=== PATIENT | female | born 2000 | race Caucasian/White ===

== ENCOUNTER 2020-06-07 19:25 | Inpatient (IN) ==
--- NOTE | 2020-06-07 20:00 | Emergency Department Note ---
Impression & Plan Suicidal ideation, UTI (urinary tract infection) ED Provider Note NAME: MARIANN LORA AGE: 19 SEX: F : 2000 ARRIVES VIA: Walk-In INFORMANT: [Patient] ED PROVIDER(S): [Suman Avery MD] CHIEF COMPLAINT: Mental health evaluation HISTORY OF PRESENT ILLNESS: The patient is a 19-year-old female who takes Zoloft. The patient states that she had some relationship issues several days ago and for the last 3 days, she has had some suicidal thoughts. She has thought about taking pills, she has thought about strangling herself with a tie, she has thought about drinking bleach. She contacted caps today, a petition was filled out and she was sent to the ER. The patient is voluntary and is asking for inpatient care for help. There has been no cough or cold or congestion. She has had no fever or chills. She has been in baseline health otherwise. She has no history of prior suicidal ideation. REVIEW OF SYSTEMS: See HPI for pertinent positives and negatives. A total of ten systems were reviewed and were otherwise negative. PMHx/PSHx: See Below SOCIAL HISTORY: See Below. PHYSICAL EXAM: GENERAL: Patient is in no acute distress. HEENT: No acute trauma, normocephalic atraumatic, mucous membranes moist, no nasal congestion, no scleral icterus. NECK: No stridor, no adenopathy, no meningismus, trachea is midline. LUNGS: Clear to auscultation bilaterally, no wheeze, no rhonchi, breath sounds equal. HEART: Mildly tachycardic, regular rhythm, no murmurs. ABDOMEN: Soft, nontender, bowel sounds positive, no hernias, no peritonitis. EXTREMITIES: No cyanosis or edema, full range of motion of all the joints without pain or difficulty, no signs for acute trauma. NEUROLOGIC: Oriented x 3, no acute motor or sensory deficits, no focal weakness. SKIN: No rash, no jaundice, no diaphoresis. Psych: Patient is cooperative and voluntary. She admits to suicidal ideation with several plans. DIFFERENTIAL DIAGNOSIS: Mood disorder, infection, hypoglycemia, electrolyte abnormalities, cardiac sources, suicidal ideation, depression, intracerebral event, toxicologic etiology, trauma, neurologic event, as well as other pathologies. EMERGENCY DEPARTMENT COURSE/PROCEDURES: MEDICAL DECISION MAKING: There is no leukocytosis or concerning anemia. There is a normal platelet co unt. No significant electrolyte abnormality or kidney failure. No concerning liver enzyme elevation. The patient appeared to be in a euthyroid state. testing returned negative. Urinalysis does suggest infection. Aspirin, Tylenol and alcohol levels were undetectable. Urine tox was negative. Covid testing returned negative. The patient presents with suicidal ideation. She had thought things out enough to have 3 potential suicidal plans. She was voluntary. Patient was given oral Keflex for her UTI. She has been cooperative while here in the ED. The patient was seen by psychiatry case management. She is being hospitalized here, on 3 S. She is being admitted voluntarily. The UTI can be treated with Keflex for now, we will wait for the urine culture results to see if any antibiotic adjustment is required. Past Med/Surg History Medical History Depression Social History Smoking Status: Current some day smoker Tobacco Type: E-cigarettes / Vaping Preferred Language: Palestinian Feels Safe at Home: Yes Allergies Allergies Allergy/AdvReac Type Severity Reaction Status Date / Time No Known Allergies Allergy Unverified 06/07/20 23:32 Home Meds Home Medications Medication Instructions Recorded Confirmed hydralazine 25 mg PO PRN 06/07/20 norgestimate-ethinyl estradiol 1 tab PO DAILY 06/07/20 06/07/20 [Gracie] sertraline [Zoloft] 100 mg PO DAILY 06/07/20 06/07/20 Results & Data (ED) Vital Signs Vital Signs - 24 hr 06/07/20 19:32 06/07/20 21:26 Temperature 36.9 C Temperature Source Oral Pulse Rate 113 H Pulse Rate [Left Radial] 80 Pulse Rhythm Regular Pulse Strength Normal Respiratory Rate 16 16 Respiratory Effort / Characteristics Non-Labored Respiratory Depth Normal Normal Respiratory Pattern Regular Blood Pressure 135/81 Blood Pressure [Left Arm] 115/70 Blood Pressure Mean 99 Blood Pressure Mean [Left Arm] 85 Blood Pressure Position Sitting Pulse Oximetry 96 99 Oxygen Delivery Method Room Air Room Air Sepsis Recent Fever Within 48 Hours No Sepsis New/Unexplained Change in Mental Status N/A Sepsis Action Taken by Nursing No Action Required Home Medications Current Medication List: was personally reviewed by me Laboratory Data Attestation: I reviewed the patient's lab results. Result diagrams: 06/07/20 20:09 06/07/20 20:09 Lab Results 06/07/20 06/07/20 06/07/20 Range/Units 20:09 20:09 20:09 WBC 9.26 (4.8-10.8) K/uL RBC 4.75 (4.2-5.4) M/uL Hgb 13.3 (12.0-16.0) g/dL Hct 39.4 (37-47) % MCV 82.9 (80-100) fL MCH 28.0 (25-34) pg MCHC 33.8 (32-36) g/dL RDW Std Deviation 39.8 (36.4-46.3) fL RDW Coeff of Nani 13.2 (11.5-14.5) % Plt Count 271 (130-400) K/uL MPV 9.5 (7.4-10.4) fL Immature Gran % (Auto) 0.2 % Neut % (Auto) 74.1 % Lymph % (Auto) 15.4 % Foard % (Auto) 9.8 % Eos % (Auto) 0.4 % Baso % (Auto) 0.1 % Neut # (Auto) 6.85 H (1.4-6.5) K/uL Lymph # (Auto) 1.43 (1.2-3.4) K/uL Foard # (Auto) 0.91 H (0.11-0.59) K/uL Eos # (Auto) 0.04 (0-0.5) K/uL Baso # (Auto) 0.01 (0-0.2) K/uL Immature Gran # (Auto) 0.02 (0.00-0.02) K/uL Sodium 139 (136-145) mmol/L Potassium 3.7 (3.5-5.1) mmol/L Chloride 106 (98-107) mmol/L Carbon Dioxide 28 (21-32) mmol/L Anion Gap 5.0 (3-11) BUN 11 (7-18) mg/dl Creatinine 0.77 (0.6-1.2) mg/dl Est Cr Clr Drug Dosing 108.4 ml/min Est GFR ( Amer) 128.8 Est GFR (Non-Af Amer) 111.1 BUN/Creatinine Ratio 14.2 (10-20) Glucose 107 H (70-99) mg/dl Calcium 8.9 (8.5-10.1) mg/dl Total Bilirubin 0.4 (0.2-1) mg/dl AST 9 L (15-37) U/L ALT 15 (12-78) U/L Alkaline Phosphatase 68 (45-117) U/L Total Protein 8.0 (6.4-8.2) gm/dl Albumin 3.9 (3.4-5.0) gm/dl Globulin 4.1 H (2.5-4.0) gm/dl Albumin/Globulin Ratio 1.0 (0.9-2) TSH 2.010 (0.300-4.500) uIu/ml HCG, Qual (Negative) Urine Color Urine Appearance (Clear) Urine pH (4.5-7.5) Ur Specific [place] (1.000-1.030) Urine Protein (Negative) Urine Glucose (UA) (Negative) Urine Ketones (Negative) Urine Blood (Negative) Urine Nitrite (Negative) Urine Bilirubin (Negative) Urine Urobilinogen (Negative) Ur Leukocyte Esterase (Negative) Urine WBC (Auto) (0-5) /hpf Urine RBC (Auto) (0-4) /hpf U Hyaline Cast (Auto) U Epithel Cells (Auto) (0-5) /lpf Urine Bacteria (Auto) (Negative) Salicylates < 1.7 L (2.8-20) mg/dl Urine Opiates Screen (Neg) Ur Methadone, Qual (Neg) Acetaminophen < 2 L (10-30) ug/ml Urine Barbiturates (Neg) Ur Phencyclidine (PCP) (Neg) U Amphetamin/Meth Scrn (Neg) MDMA (Ecstasy) Screen (Neg) U Benzodiazepines Scrn (Neg) Ur Cocaine Metabolite (Neg) U Marijuana (THC) Screen (Neg) Ethyl Alcohol mg/dL (0-3) mg/dl COVID-19 Eval Order SARS-CoV-2, RNA, NAAT (NEGATIVE) 06/07/20 06/07/20 06/07/20 Range/Units 20:09 20:09 23:06 WBC (4.8-10.8) K/uL RBC (4.2-5.4) M/uL Hgb (12.0-16.0) g/dL Hct (37-47) % MCV (80-100) fL MCH (25-34) pg MCHC (32-36) g/dL RDW Std Deviation (36.4-46.3) fL RDW Coeff of Nani (11.5-14.5) % Plt Count (130-400) K/uL MPV (7.4-10.4) fL Immature Gran % (Auto) % Neut % (Auto) % Lymph % (Auto) % Foard % (Auto) % Eos % (Auto) % Baso % (Auto) % Neut # (Auto) (1.4-6.5) K/uL Lymph # (Auto) (1.2-3.4) K/uL Foard # (Auto) (0.11-0.59) K/uL Eos # (Auto) (0-0.5) K/uL Baso # (Auto) (0-0.2) K/uL Immature Gran # (Auto) (0.00-0.02) K/uL Sodium (136-145) mmol/L Potassium (3.5-5.1) mmol/L Chloride (98-107) mmol/L Carbon Dioxide (21-32) mmol/L Anion Gap (3-11) BUN (7-18) mg/dl Creatinine (0.6-1.2) mg/dl Est Cr Clr Drug Dosing ml/min Est GFR ( Amer) Est GFR (Non-Af Amer) BUN/Creatinine Ratio (10-20) Glucose (70-99) mg/dl Calcium (8.5-10.1) mg/dl Total Bilirubin (0.2-1) mg/dl AST (15-37) U/L ALT (12-78) U/L Alkaline Phosphatase (45-117) U/L Total Protein (6.4-8.2) gm/dl Albumin (3.4-5.0) gm/dl Globulin (2.5-4.0) gm/dl Albumin/Globulin Ratio (0.9-2) TSH (0.300-4.500) uIu/ml HCG, Qual Negative (Negative) Urine Color Urine Appearance (Clear) Urine pH (4.5-7.5) Ur Specific [place] (1.000-1.030) Urine Protein (Negative) Urine Glucose (UA) (Negative) Urine Ketones (Negative) Urine Blood (Negative) Urine Nitrite (Negative) Urine Bilirubin (Negative) Urine Urobilinogen (Negative) Ur Leukocyte Esterase (Negative) Urine WBC (Auto) (0-5) /hpf Urine RBC (Auto) (0-4) /hpf U Hyaline Cast (Auto) U Epithel Cells (Auto) (0-5) /lpf Urine Bacteria (Auto) (Negative) Salicylates (2.8-20) mg/dl Urine Opiates Screen (Neg) Ur Methadone, Qual (Neg) Acetaminophen (10-30) ug/ml Urine Barbiturates (Neg) Ur Phencyclidine (PCP) (Neg) U Amphetamin/Meth Scrn (Neg) MDMA (Ecstasy) Screen (Neg) U Benzodiazepines Scrn (Neg) Ur Cocaine Metabolite (Neg) U Marijuana (THC) Screen (Neg) Ethyl Alcohol mg/dL < 3.0 (0-3) mg/dl COVID-19 Eval Order Covid19 IDNow atMVTC SARS-CoV-2, RNA, NAAT (NEGATIVE) 06/07/20 06/07/20 06/07/20 Range/Units 23:06 Unknown Unknown WBC (4.8-10.8) K/uL RBC (4.2-5.4) M/uL Hgb (12.0-16.0) g/dL Hct (37-47) % MCV (80-100) fL MCH (25-34) pg MCHC (32-36) g/dL RDW Std Deviation (36.4-46.3) fL RDW Coeff of Nani (11.5-14.5) % Plt Count (130-400) K/uL MPV (7.4-10.4) fL Immature Gran % (Auto) % Neut % (Auto) % Lymph % (Auto) % Foard % (Auto) % Eos % (Auto) % Baso % (Auto) % Neut # (Auto) (1.4-6.5) K/uL Lymph # (Auto) (1.2-3.4) K/uL Foard # (Auto) (0.11-0.59) K/uL Eos # (Auto) (0-0.5) K/uL Baso # (Auto) (0-0.2) K/uL Immature Gran # (Auto) (0.00-0.02) K/uL Sodium (136-145) mmol/L Potassium (3.5-5.1) mmol/L Chloride (98-107) mmol/L Carbon Dioxide (21-32) mmol/L Anion Gap (3-11) BUN (7-18) mg/dl Creatinine (0.6-1.2) mg/dl Est Cr Clr Drug Dosing ml/min Est GFR ( Amer) Est GFR (Non-Af Amer) BUN/Creatinine Ratio (10-20) Glucose (70-99) mg/dl Calcium (8.5-10.1) mg/dl Total Bilirubin (0.2-1) mg/dl AST (15-37) U/L ALT (12-78) U/L Alkaline Phosphatase (45-117) U/L Total Protein (6.4-8.2) gm/dl Albumin (3.4-5.0) gm/dl Globulin (2.5-4.0) gm/dl Albumin/Globulin Ratio (0.9-2) TSH (0.300-4.500) uIu/ml HCG, Qual (Negative) Urine Color Yellow Urine Appearance Turbid A (Clear) Urine pH 6.5 (4.5-7.5) Ur Specific [place] 1.021 (1.000-1.030) Urine Protein Trace H (Negative) Urine Glucose (UA) Negative (Negative) Urine Ketones Trace H (Negative) Urine Blood Trace H (Negative) Urine Nitrite Negative (Negative) Urine Bilirubin Negative (Negative) Urine Urobilinogen Negative (Negative) Ur Leukocyte Esterase 3+ H (Negative) Urine WBC (Auto) >30 H (0-5) /hpf Urine RBC (Auto) 0-4 (0-4) /hpf U Hyaline Cast (Auto) Not Reportable U Epithel Cells (Auto) >30 H (0-5) /lpf Urine Bacteria (Auto) 4+ H (Negative) Salicylates (2.8-20) mg/dl Urine Opiates Screen Neg (Neg) Ur Methadone, Qual Neg (Neg) Acetaminophen (10-30) ug/ml Urine Barbiturates Neg (Neg) Ur Phencyclidine (PCP) Neg (Neg) U Amphetamin/Meth Scrn Neg (Neg) MDMA (Ecstasy) Screen Neg (Neg) U Benzodiazepines Scrn Neg (Neg) Ur Cocaine Metabolite Neg (Neg) U Marijuana (THC) Screen Neg (Neg) Ethyl Alcohol mg/dL (0-3) mg/dl COVID-19 Eval Order SARS-CoV-2, RNA, NAAT NEGATIVE (NEGATIVE) Administered Medications Discontinued Medications Cephalexin HCl (Cephalexin 250 Mg Cap) 500 mg PO NOW ONE Stop: 06/07/20 21:06 Last Admin: 06/07/20 21:15 Dose: 500 mg Documented by: [id number] Discharge Plan Visit Data Chief Complaint: Mental Health Evaluation Stated Complaint: MENTAL HEALTH EVAL ED Provider: Suman Avery Discharge Problem: Suicidal ideation, UTI (urinary tract infection) Patient Disposition: Admitted As Inpatient Condition: Good Forms Stand Alone Forms: [facility], Suicide Prevention Resources Prescriptions Prescriptions: No Action norgestimate-ethinyl estradiol [Gracie] 0.25-35 mg-mcg Tablet 1 tab PO DAILY RF: 0 sertraline [Zoloft] 100 mg Tablet 100 mg PO DAILY RF: 0 hydralazine 25 mg Tablet 25 mg PO PRN (Reason: Anxiety) RF: 0 Referrals Referrals: Brock Corrales [Other] Discharge Problem: UTI (urinary tract infection) Qualifiers: Urinary tract infection type: acute cystitis Hematuria presence: without hematuria Qualified Code(s): N30.00 - Acute cystitis without hematuria
[2020-06-07 20:21] LABS: Basophils # (auto) 0.01 K/uL (0-0.2); Basophils % (auto) 0.1 %; Eosinophils # (auto) 0.04 K/uL (0-0.5); Eosinophils % (auto) 0.4 %; Hematocrit (blood only) 39.4 % (37-47); Hemoglobin 13.3 g/dL (12.0-16.0); Immature Granulocytes # (auto) 0.02 K/uL (0.00-0.02); Immature Granulocytes % (auto) 0.2 %; Lymphocytes # (auto) 1.43 K/uL (1.2-3.4); Lymphocytes % (auto) 15.4 %; Mean Corpuscular Hgb Conc 33.8 g/dL (32-36); Mean Corpuscular Volume 82.9 fL (80-100); Mean Platelet Volume 9.5 fL (7.4-10.4); Monocytes # (auto) 0.91 K/uL (0.11-0.59); Monocytes % (auto) 9.8 %; Neutrophils # (auto) 6.85 K/uL (1.4-6.5); Neutrophils % (auto) 74.1 %; Platelet Count 271 K/uL (130-400); RDW Coefficient of Variation 13.2 % (11.5-14.5); RDW Standard Deviation 39.8 fL (36.4-46.3); Red Blood Count 4.75 M/uL (4.2-5.4); White Blood Count 9.26 K/uL (4.8-10.8)
[2020-06-07 20:21] LABS: Appearance Urine Turbid (Clear); Bacteria Urine Automated 4+ (Negative); Bilirubin Urine Negative (Negative); Blood Urine Trace (Negative); Color Urine Yellow; Epithelial Cell Urine Auto >30 /lpf (0-5); Glucose Urine UA Negative (Negative); Ketones Urine Trace (Negative); Leukocyte Esterase Urine 3+ (Negative); Nitrite Urine Negative (Negative); Protein Urine Trace (Negative); RBC Urine Automated 0-4 /hpf (0-4); Specific Gravity Urine 1.021 (1.000-1.030); Urobilinogen Urine Negative (Negative); WBC Urine Automated >30 /hpf (0-5); pH Urine 6.5 (4.5-7.5)
[2020-06-07 20:38] LABS: Pregnancy Test, Serum Negative (Negative)
[2020-06-07 20:40] LABS: Albumin Level 3.9 gm/dl (3.4-5.0); BUN Creatinine Ratio 14.2 (10-20); Calcium 8.9 mg/dl (8.5-10.1); Creatinine Clr Calc Pharmacy 108.4 ml/min; Est GFR (African American) 128.8; Est GFR (Non-African American) 111.1; Potassium 3.7 mmol/L (3.5-5.1)
[2020-06-07 20:50] LABS: Bilirubin,Total 0.4 mg/dl (0.2-1); Globulin 4.1 gm/dl (2.5-4.0); Thyroid Stimulating Hormone 2.01 uIu/ml (0.300-4.500)
[2020-06-07 20:53] LABS: Acetaminophen < 2 ug/ml (10-30); Salicylate < 1.7 mg/dl (2.8-20)
[2020-06-07] MEDS ORDERED: cephALEXin 250 MG CAP PO ONE (21:05)
[2020-06-07 22:17] LABS: Amphetamines+Metham, Urine Neg (Neg); Barbiturates, Urine Neg (Neg); Benzodiazepine, Urine Neg (Neg); Cocaine, Urine Neg (Neg); MDMA (Ecstacy), Urine Neg (Neg); Methadone, Urine Neg (Neg); Opiate, Urine Neg (Neg); Phencyclidine, Urine Neg (Neg)
[2020-06-08] MEDS ORDERED: MAGNESIUM HYDROXIDE SUSP 30 ML UDC PO PRN (00:32)
[2020-06-08] MEDS ORDERED: hydrOXYzine HCl 25 MG TAB PO PRN ×2 (00:32)
[2020-06-08] MEDS ORDERED: ALUMINUM/MAGNESIUM SUSP 30 ML UDC PO PRN (00:32)
[2020-06-08] MEDS ORDERED: SODIUM CHLORIDE 0.65% NA SOLN 45 ML (OCEAN) PRN (00:32)
[2020-06-08] MEDS ORDERED: BISMUTH SUBSALICYLATE LIQD 236 ML PO PRN (00:32)
[2020-06-08] MEDS ORDERED: ACETAMINOPHEN 325 MG TAB PO PRN (00:32)
[2020-06-08] MEDS ORDERED: SERTRALINE HCL 100 MG TABLET PO SCH (09:00)
--- NOTE | 2020-06-08 09:34 | History & Physical ---
Date of Service June 08, 2020 Impression / Recommendations Impression 19-year-old female [employer] Kahlil admitted voluntarily on 06/08/20 for inpatient psychiatric treatment upon recommendation of her therapist at [facility]. Pt had verbalized suicidal ideation with act of furtherance on 06/05 where she had contemplated numerous plans and did put a neck tie around her neck and searched for ways to hang herself. Pt admits to history of treatment for depression and anxiety. Will encourage participation in treatment recommendations and work to arrange outpatient psychiatric treatment. Pt is at acute risk of suicide if discharged prematurely. Dr. Javon Bhandari was directly involved in review and discussion of the patient's case and participated in medical decision making regarding treatment recommendations. (1) Suicidal ideation: 06/08 - Admitted to a locked inpatient behavioral health unit, on q15 minute safety checks - Encourage medication initiation/adjustments as indicated - Encourage participation in group and recreational therapies - Gather collateral information from outpatient providers - Suggest family meeting to involve outpatient supports in safety planning - Arrange appropriate aftercare (2) Depression: 06/08 - Historical diagnosis of depression. Pt admits to general "numb" feeling, but does seem to report some strong emotional reactions to various situations. Differential includes: dysthymic disorder, personality disorder (specifically some borderline traits), and need to rule out bipolar II disorder given recent increase in productivity (though current reports are not at threshold for formal diagnosis. - Continue sertraline 125mg daily, reportedly had discussed titration to this does with her shipping assistant recently but had not yet started the prescription. Pt declining further increase at this time, which is reasonable given recent outpatient adjustment. - Encourage participation with group and recreational programming - Assist with development of healthy and effective coping strategies - Family meeting with parents, coordination with Student Care and Advocacy - Encourage completion of a written safety plan Depression Type: unspecified Qualified Code(s): F32.9 - Major depressive disorder, single episode, unspecified (3) Generalized anxiety disorder with panic attacks: 06/08 - Continue sertraline as above - R/O OCD, as patient admits to several traits (needing to do things in 3's, 'compulsions' to crack her back, "straightening little things out, but my room is a mess") - Utilization of hydroxyzine as needed for acute anxiety/insomnia - Assist with development of healthy and effective coping strategies (4) UTI (urinary tract infection): 06/08 - UA consistent with possible UTI, patient admits to irritation with urination. Started on Keflex in the ED, will continue 500mg BID dosing x5 days and await return of culture and sensitivities. Hematuria presence: without hematuria Urinary tract infection type: acute cystitis Qualified Code(s): N30.00 - Acute cystitis without hematuria Risk Factors Assessment Male: No : Yes Do You Have Access To A Gun?: No Health Problems: No Mental Health Diagnoses: Yes Substance Use Disorders: No Previous Attempt: No Family History of Suicide: No Previous Psychiatric Hospitalization: No Hopelessness: Yes Smoker: No Protective Factors Assessment Christianity Beliefs: No : No Responsible for Young Children: No Employed: No Stable Relationships: No Psychiatric History Identifying Data MARIANN LORA is 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 Pt has a history of treatment for anxiety and depression, and was admitted on 06/08/20 00:32 on a 201 voluntary commitment for suicidal ideation with suicidal gesture of wrapping neck tie around her neck with intent to hang self prior to admission. Chief Complaint "I've just had a hard semester, it's hit even harder than last semester I feel." History of Present Illness Mariann Lora (Alex) is a 19-year-old female, currently a Kahlil at [employer]. Pt is originally from [place], [place] and has a history of outpatient treatment for depression and anxiety. Pt was sent to the ED upon recommendation from providers at [facility] due to disclosing recent suicidal ideation with act of furtherance. Pt was ultimately willing for admission. Pt was cooperative with psychiatric evaluation. She states "I've just had a hard semester, it's hit even harder than last semester I feel." Pt states that she originally started her degree at a branch campus of [employer], and moved to [place] in the Fall of 2019 to continue her schooling. She states "this Spring semester has been tough, I feel like from day one I've just wanted to be at home." Pt initially stated that classes had been overwhelming, but then later reported "I've been more productive recently, like I actually want more work to do. I'm so bored." Pt describes the events leading to her presentation as "a build-up." She admits that in the last few weeks she had been rejected by several "guys I was talking to", and had to block her ex-boyfriend on all social medical platforms due to him consistently reaching out to "try to get be to go back with him." She states that there have been some conflicts between friends as well, which have been difficult to navigate. The patient states that she has often had "fleeting thoughts" of suicide, but has not often truly contemplated the idea. Pt admits that on 06/05/20 she was feeling overwhelmed and began looking for things she could use with the intent to end her life. Pt states she had considered drinking bleach, overdosing on pills, or hanging herself. Pt admits "but there's no place in my apartment to hang yourself, and I had thoroughly looked..." She does admit to taking a neck-tie and tying it around her neck and pulling with her own hand, but stopped shortly after. Despite verbalizing clear contemplation of suicide, she also admits "I think I got scared, because I knew that no one would be home to check on me in time, and I thought I might actually ..." Pt admits that generally she "fakes" happiness and sean with humor. She reported numerous times "I think now people will listen to my cries for help" and "I think I wanted people to notice how much I was hurting." She declines further titration of sertraline as she is already concerned her dose of 125mg may be "excessive". She is open to a family meeting with parents. Pt does admit to depressive symptoms of low mood and feeling "numb", decreased concentration, limited motivation, decreased appetite/motivation to cook, feelings of hopelessness, and intermittent SI. She does describe herself as an anxious person and admits to having had several panic attacks. Pt denies having adequate coping skills to deal with this and states "I usually just wait for it to pass." Pt states she notices she becomes more restless with anxiety, often bouncing her legs or being unable to concentration/sit still in classes. Pt does endorse some obsessive/compulsive traits of feeling the need to do things in 3's, feeling "compelled" to crack her back, needing to color coordinate notebooks, and other mild particular behaviors that are not overly distressing per her reports. Pt denies current SI, HI, SIB, A/V hallucinations, paranoia, other symptoms more suggestive of a bipolar presentation, PTSD, eating disorder, and other specific psychiatric symptoms. Past Psychiatric History Current Psychiatric Diagnosis: Depression/Anxiety Outpatient Services: Therapist - Loly Schwartz - [facility] Medications are currently prescribed by the patient's shipping assistant. Previous Psych Admissions: None Do You Have Access To A Gun?: No History of Previous Suicide Attempt: No Describe Attempts in the Past: None Past Medication Trials: 1. Prozac - increased anxiety/"made me fidgety and restless" 2. Zoloft 3. Hydroxyzine Past Head Trauma/Neuro History History of Concussion/Seizure: Yes (pt reports history of 5 concussions related to sports injuries) Allergies Allergy/AdvReac Type Severity Reaction Status Date / Time No Known Allergies Allergy Unverified 06/07/20 23:32 Home Medications Medication Instructions Recorded Confirmed Type norgestimate-ethinyl estradiol 1 tab PO DAILY 06/07/20 06/07/20 History [Gracie] sertraline [Zoloft] 100 mg PO DAILY 06/07/20 06/07/20 History hydroxyzine pamoate 25 mg PO HS 06/08/20 06/08/20 History Family History Family History of: Doesn't Know Alcohol History Hx of Alcohol Use Over the Past 12 Months: Yes (social/occassional, less than monthly) AUDIT Total Score: 1 Pt admits to "social" alcohol use, generally 1-2 days a week. Pt states she generally only consumes 1-2 drinks on nights she partakes. Smoking Use Have You Smoked or Used Tobacco Products in the Last 30 Days: No tobacco type: e-cigarettes Smoking Status: Current some day smoker (<1 day a week) Substance History Hx of Prescription Med Misuse Over the Past 12 Months: No Hx of Over the Counter Med Misuse Over the Past 12 Months: No Hx of Inhalent Misuse Over the Past 12 Months: No Hx of Organic Substance Use Over the Past 12 Months: No Hx of Illegal Substances/Street Drug Use Over Past 12 Months: No Problems as a Result of Past Substance Use: None Identified Personal History Living Arrangements: Apartment (with roommates) Childhood: Pt is from [place], [place] - parents and two younger sister still reside there. 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 Recent of grandfather within the last week. Patient History Medical History Depression Social History Smoking Status: Current some day smoker Tobacco Type: E-cigarettes / Vaping Preferred Language: Thai Communication Ability: Effective Beliefs That Will Affect Care: None Feels Safe at Home: Yes Assistive Devices: None Review of Systems Review of Systems: Constitutional: denied Cardiovascular: denied Respiratory: denied Gastrointestinal: denied Genitourinary: admits to itching/irritation Neurological: denied Psychiatric: denies symptoms other than stated above Total of at least 10 systems reviewed, pertinent positives as above and in HPI. Physical Exam Psychiatric: Orientation: alert, oriented x 3 and cooperative Apperance: appropriately dressed, appropriately groomed and appeared stated age female, slightly overweight seated in chair in no acute distress. Pt is casually dressed, wearing sweatshirt, sweatpants, and slippers. Hair is blonde, but primarily dyed purple. No significant piercings or tattoos. Level of hygiene and grooming appear adequate. Eye Contact: + fair eye contact Motor Behavior: steady gait and station and no abnormal motor movements Speech: normal rate/rhythm/volume of speech Affect: + blunted affect (subdued presentation) smiling intermittently, though patient admitting to often "faking" Mood: + depressed mood and + anxious mood Thought Process: goal directed thought process, clear/coherent thought process and thought association intact Thought Content: reality based without delusions, + hopelessness (intermittently ), + loneliness, + guilt (worried about being a burden on others) and + self deprecation Suicidal Thoughts: denies suicidal thoughts and denies suicidal intent Homicidal Thoughts: denies homicidal thoughts Hallucinations: no auditory hallucinations and no visual hallucinations Cognition: attention grossly intact and language grossly intact Estimated Intelligence: consistent with education level Insight: + fair insight Judgement: + fair judgement Vital Signs (Past 24 Hours): Last Vital Signs Temp 36.7 C 06/08/20 06:57 Pulse 76 06/08/20 06:58 Resp 16 06/08/20 06:57 BP 108/74 06/08/20 06:58 Pulse Ox 99 06/07/20 21:26 Exam Statement: A physical exam was performed in the ER prior to admission to the unit by Dr. Suman Avery MD. I accept that physical as correct/medical clearance for the inpatient physical exam. Results & Data ([facility]) Laboratory Results Laboratory Results - last 24 hr 06/07/20 06/07/20 06/07/20 20:09 20:09 20:09 WBC 9.26 RBC 4.75 Hgb 13.3 Hct 39.4 MCV 82.9 MCH 28.0 MCHC 33.8 RDW Std Deviation 39.8 RDW Coeff of Nani 13.2 Plt Count 271 MPV 9.5 Immature Gran % (Auto) 0.2 Neut % (Auto) 74.1 Lymph % (Auto) 15.4 Leake % (Auto) 9.8 Eos % (Auto) 0.4 Baso % (Auto) 0.1 Neut # (Auto) 6.85 H Lymph # (Auto) 1.43 Leake # (Auto) 0.91 H Eos # (Auto) 0.04 Baso # (Auto) 0.01 Immature Gran # (Auto) 0.02 Sodium 139 Potassium 3.7 Chloride 106 Carbon Dioxide 28 Anion Gap 5.0 BUN 11 Creatinine 0.77 Est Cr Clr Drug Dosing 108.4 Est GFR ( Amer) 128.8 Est GFR (Non-Af Amer) 111.1 BUN/Creatinine Ratio 14.2 Glucose 107 H Calcium 8.9 Total Bilirubin 0.4 AST 9 L ALT 15 Alkaline Phosphatase 68 Total Protein 8.0 Albumin 3.9 Globulin 4.1 H Albumin/Globulin Ratio 1.0 TSH 2.010 HCG, Qual Urine Color Urine Appearance Urine pH Ur Specific [place] Urine Protein Urine Glucose (UA) Urine Ketones Urine Blood Urine Nitrite Urine Bilirubin Urine Urobilinogen Ur Leukocyte Esterase Urine WBC (Auto) Urine RBC (Auto) U Hyaline Cast (Auto) U Epithel Cells (Auto) Urine Bacteria (Auto) Salicylates < 1.7 L Urine Opiates Screen Ur Methadone, Qual Acetaminophen < 2 L Urine Barbiturates Ur Phencyclidine (PCP) U Amphetamin/Meth Scrn MDMA (Ecstasy) Screen U Benzodiazepines Scrn Ur Cocaine Metabolite U Marijuana (THC) Screen Ethyl Alcohol mg/dL COVID-19 Eval Order SARS-CoV-2, RNA, NAAT 06/07/20 06/07/20 06/07/20 20:09 20:09 23:06 WBC RBC Hgb Hct MCV MCH MCHC RDW Std Deviation RDW Coeff of Nani Plt Count MPV Immature Gran % (Auto) Neut % (Auto) Lymph % (Auto) Leake % (Auto) Eos % (Auto) Baso % (Auto) Neut # (Auto) Lymph # (Auto) Leake # (Auto) Eos # (Auto) Baso # (Auto) Immature Gran # (Auto) Sodium Potassium Chloride Carbon Dioxide Anion Gap BUN Creatinine Est Cr Clr Drug Dosing Est GFR ( Amer) Est GFR (Non-Af Amer) BUN/Creatinine Ratio Glucose Calcium Total Bilirubin AST ALT Alkaline Phosphatase Total Protein Albumin Globulin Albumin/Globulin Ratio TSH HCG, Qual Negative Urine Color Urine Appearance Urine pH Ur Specific [place] Urine Protein Urine Glucose (UA) Urine Ketones Urine Blood Urine Nitrite Urine Bilirubin Urine Urobilinogen Ur Leukocyte Esterase Urine WBC (Auto) Urine RBC (Auto) U Hyaline Cast (Auto) U Epithel Cells (Auto) Urine Bacteria (Auto) Salicylates Urine Opiates Screen Ur Methadone, Qual Acetaminophen Urine Barbiturates Ur Phencyclidine (PCP) U Amphetamin/Meth Scrn MDMA (Ecstasy) Screen U Benzodiazepines Scrn Ur Cocaine Metabolite U Marijuana (THC) Screen Ethyl Alcohol mg/dL < 3.0 COVID-19 Eval [facility] [place] [facility] [place]2, RNA, NAAT 06/07/20 06/07/20 06/07/20 23:06 Unknown Unknown WBC RBC Hgb Hct MCV MCH MCHC RDW Std Deviation RDW Coeff of Nani Plt Count MPV Immature Gran % (Auto) Neut % (Auto) Lymph % (Auto) Leake % (Auto) Eos % (Auto) Baso % (Auto) Neut # (Auto) Lymph # (Auto) Leake # (Auto) Eos # (Auto) Baso # (Auto) Immature Gran # (Auto) Sodium Potassium Chloride Carbon Dioxide Anion Gap BUN Creatinine Est Cr Clr Drug Dosing Est GFR ( Amer) Est GFR (Non-Af Amer) BUN/Creatinine Ratio Glucose Calcium Total Bilirubin AST ALT Alkaline Phosphatase Total Protein Albumin Globulin Albumin/Globulin Ratio TSH HCG, Qual Urine Color Yellow Urine Appearance Turbid A Urine pH 6.5 Ur Specific [place] 1.021 Urine Protein Trace H Urine Glucose (UA) Negative Urine Ketones Trace H Urine Blood Trace H Urine Nitrite Negative Urine Bilirubin Negative Urine Urobilinogen Negative Ur Leukocyte Esterase 3+ H Urine WBC (Auto) >30 H Urine RBC (Auto) 0-4 U Hyaline Cast (Auto) Not Reportable U Epithel Cells (Auto) >30 H Urine Bacteria (Auto) 4+ H Salicylates Urine Opiates Screen Neg Ur Methadone, Qual Neg Acetaminophen Urine Barbiturates Neg Ur Phencyclidine (PCP) Neg U Amphetamin/Meth Scrn Neg MDMA (Ecstasy) Screen Neg U Benzodiazepines Scrn Neg Ur Cocaine Metabolite Neg U Marijuana (THC) Screen Neg Ethyl Alcohol mg/dL COVID-19 Eval Order SARS-CoV-2, RNA, NAAT NEGATIVE Current Inpatient Medications Current Inpatient Medications: Current Inpatient Medications Acetaminophen (Acetaminophen 325 Mg Tab) 650 mg PO Q4H PRN PRN Reason: Headache or Minor Fever Stop: 07/08/20 00:31 Al Hydrox/Mg Hydrox/Simethicone (Aluminum/Magnesium Susp 30 Ml Udc) 30 ml PO Q4H PRN PRN Reason: GI Upset Stop: 07/08/20 00:31 Bismuth Subsalicylate (Bismuth Subsalicylate Liqd 236 Ml) 15 ml PO PRN PRN PRN Reason: Loose Stool Stop: 07/08/20 00:31 Hydroxyzine HCl (Hydroxyzine Hcl 25 Mg Tab) 50 mg PO HSZ PRN PRN Reason: Insomnia Stop: 07/08/20 00:31 Hydroxyzine HCl (Hydroxyzine Hcl 25 Mg Tab) 25 mg PO Q4H PRN PRN Reason: Anxiety Stop: 07/08/20 00:31 Magnesium Hydroxide (Magnesium Hydroxide Susp 30 Ml Udc) 30 ml PO DAILY PRN PRN Reason: Constipation Stop: 07/08/20 00:31 Bcp's~Non-Formulary (Patient's Own Med) 1 ea PO QAM YANG Stop: 07/08/20 08:59 Sertraline HCl (Sertraline Hcl 50 Mg Tablet) 125 mg PO QAM YANG Stop: 07/08/20 08:59 Sodium Chloride (Sodium Chloride 0.65% Na Soln 45 Ml ([employer])) 1 - 2 sprays NA PRN PRN PRN Reason: Nasal Dryness/Congestion Stop: 07/08/20 00:31
[2020-06-08] MEDS: BCP S PO SCH (09:40)
[2020-06-08] MEDS: SERTRALINE HCL 50 MG TABLET PO SCH (09:41)
[2020-06-08] MEDS: IBUPROFEN 600 MG TAB PO PRN (12:20)
[2020-06-08] MEDS: cephALEXin 500 MG CAP PO SCH ×2 (12:22→21:09)
[2020-06-08] MEDS ORDERED: MONISTAT PRN (15:32)
[2020-06-09] MEDS: cephALEXin 500 MG CAP PO SCH ×2 (09:35→21:04)
[2020-06-09] MEDS: SERTRALINE HCL 50 MG TABLET PO SCH (09:35)
[2020-06-09] MEDS: BCP S PO SCH (09:37)
--- NOTE | 2020-06-09 16:09 | Psychiatric Progress Note ---
Date of Service June 09, 2020 Impression / Recommendations Impression 19-year-old female [employer] Kahlil admitted voluntarily on 06/08/20 for inpatient psychiatric treatment upon recommendation of her therapist at [facility]. Pt had verbalized suicidal ideation with act of furtherance on 06/05 where she had contemplated numerous plans and did put a neck tie around her neck and searched for ways to hang herself. Pt admits to history of treatment for depression and anxiety. Will encourage participation in treatment recommendations and work to arrange outpatient psychiatric treatment. Pt is at acute risk of suicide if discharged prematurely. Reviewed 06/09/20. Improving (1) Suicidal ideation: 06/08 - Admitted to a locked inpatient behavioral health unit, on q15 minute safety checks - Encourage medication initiation/adjustments as indicated - Encourage participation in group and recreational therapies - Gather collateral information from outpatient providers - Suggest family meeting to involve outpatient supports in safety planning - Arrange appropriate aftercare Reviewed 06/09/20. (2) Depression: 06/08 - Historical diagnosis of depression. Pt admits to general "numb" feeling, but does seem to report some strong emotional reactions to various situations. Differential includes: dysthymic disorder, personality disorder (specifically some borderline traits), and need to rule out bipolar II disorder given recent increase in productivity (though current reports are not at threshold for formal diagnosis. - Continue sertraline 125mg daily, reportedly had discussed titration to this does with her parts representative recently but had not yet started the prescription. Pt declining further increase at this time, which is reasonable given recent outpatient adjustment. - Encourage participation with group and recreational programming - Assist with development of healthy and effective coping strategies - Family meeting with parents, coordination with Student Care and Advocacy - Encourage completion of a written safety plan Reviewed 06/09/20. Continue Zoloft. (3) Generalized anxiety disorder with panic attacks: 06/08 - Continue sertraline as above - R/O OCD, as patient admits to several traits (needing to do things in 3's, 'compulsions' to crack her back, "straightening little things out, but my room is a mess") - Utilization of hydroxyzine as needed for acute anxiety/insomnia - Assist with development of healthy and effective coping strategies Reviewed 06/09/20. (4) UTI (urinary tract infection): 06/08 - UA consistent with possible UTI, patient admits to irritation with urination. Started on Keflex in the ED, will continue 500mg BID dosing x5 days and await return of culture and sensitivities. Reviewed 06/09/20. Risk Factors Assessment Male: No : Yes Do You Have Access To A Gun?: No Health Problems: No Mental Health Diagnoses: Yes Substance Use Disorders: No Previous Attempt: No Family History of Suicide: No Previous Psychiatric Hospitalization: No Hopelessness: Yes Smoker: No Protective Factors Assessment Mormonism Beliefs: No : No Responsible for Young Children: No Employed: No Stable Relationships: No Interval History Chief Complaint "I'm actually surprised how much better I feel here and how helpful the groups are". Review of Systems Sleep Information Total Hours of Sleep: 7.5 Meal Information Percent Meal Consumed - Breakfast: 100 Percent Meal Consumed - Lunch: 100 Percent Meal Consumed - Dinner: 80 Subjective Subjective Patient was seen & assessed and interval progress reviewed with nursing and social work. States she has settled into the routine here. Sleep hasn't been the greatest due to noise on unit but she is willing to "go with the flow". Tolerating Zoloft increase. Dysuria is resolving. Regrets suicidal gesture, feels thoughts are lessening or "even gone right now". Physical Exam Psychiatric Orientation: alert and cooperative Apperance: appropriately dressed and appropriately groomed Eye Contact: + fair eye contact Motor Behavior: steady gait and station Speech: normal rate/rhythm/volume of speech Mood: + depressed mood Thought Process: goal directed thought process Thought Content: reality based without delusions Suicidal Thoughts: denies suicidal thoughts and denies suicidal intent Homicidal Thoughts: denies homicidal thoughts Hallucinations: no auditory hallucinations and no visual hallucinations Cognition: attention grossly intact and language grossly intact Estimated Intelligence: consistent with education level Insight: + fair insight Judgement: + fair judgement Vital Signs (Past 24 Hours) Last Vital Signs Temp 36.1 C L 06/09/20 08:00 Pulse 85 06/09/20 06:50 Resp 16 06/09/20 06:00 BP 102/68 06/09/20 06:50 Pulse Ox 99 06/07/20 21:26 Results & Data ([facility]) Current Inpatient Medications Current Inpatient Medications: Current Inpatient Medications Acetaminophen (Acetaminophen 325 Mg Tab) 650 mg PO Q4H PRN PRN Reason: Headache or Minor Fever Stop: 07/08/20 00:31 Al Hydrox/Mg Hydrox/Simethicone (Aluminum/Magnesium Susp 30 Ml Udc) 30 ml PO Q4H PRN PRN Reason: GI Upset Stop: 07/08/20 00:31 Bismuth Subsalicylate (Bismuth Subsalicylate Liqd 236 Ml) 15 ml PO PRN PRN PRN Reason: Loose Stool Stop: 07/08/20 00:31 Cephalexin HCl (Cephalexin 500 Mg Cap) 500 mg PO BID YANG Stop: 06/12/20 10:00 Last Admin: 06/09/20 09:35 Dose: 500 mg Documented by: Hydroxyzine HCl (Hydroxyzine Hcl 25 Mg Tab) 50 mg PO HSZ PRN PRN Reason: Insomnia Stop: 07/08/20 00:31 Last Admin: 06/09/20 00:48 Dose: 50 mg Documented by: Hydroxyzine HCl (Hydroxyzine Hcl 25 Mg Tab) 25 mg PO Q4H PRN PRN Reason: Anxiety Stop: 07/08/20 00:31 Last Admin: 06/08/20 12:21 Dose: 25 mg Documented by: Ibuprofen (Ibuprofen 600 Mg Tab) 600 mg PO Q6H PRN PRN Reason: Pain Stop: 07/08/20 10:51 Last Admin: 06/08/20 12:20 Dose: 600 mg Documented by: Magnesium Hydroxide (Magnesium Hydroxide Susp 30 Ml Udc) 30 ml PO DAILY PRN PRN Reason: Constipation Stop: 07/08/20 00:31 Bcp's~Non-Formulary (Patient's Own Med) 1 ea PO QAM YANG Stop: 07/08/20 08:59 Last Admin: 06/09/20 09:37 Dose: 1 ea Documented by: Monistat Cream~Non- Formulary Patient's Own Med 1 ea N/A BID PRN PRN Reason: affected areas Stop: 07/08/20 15:31 Last Admin: 06/08/20 22:32 Dose: 1 ea Documented by: Sertraline HCl (Sertraline Hcl 50 Mg Tablet) 125 mg PO QAM YANG Stop: 07/08/20 08:59 Last Admin: 06/09/20 09:35 Dose: 125 mg Documented by: Sodium Chloride (Sodium Chloride 0.65% Na Soln 45 Ml ([place])) 1 - 2 sprays NA PRN PRN PRN Reason: Nasal Dryness/Congestion Stop: 07/08/20 00:31 Mental Health & Subst Abuse Tx Therapist Name of Therapist: GINA/Jez Part Maker Name of Part Maker: None Post Discharge Appointments Primary Care Physician Name Of Family Doctor: Brock Arriola @ [facility], last saw 06/06/2020 (1) Depression Depression Type: unspecified Qualified Code(s): F32.9 - Major depressive disorder, single episode, unspecified (2) UTI (urinary tract infection) Hematuria presence: without hematuria Urinary tract infection type: acute cystitis Qualified Code(s): N30.00 - Acute cystitis without hematuria
[2020-06-09] MEDS: IBUPROFEN 600 MG TAB PO PRN (21:04)
[2020-06-10] MEDS: cephALEXin 500 MG CAP PO SCH ×2 (09:20→20:54)
[2020-06-10] MEDS: BCP S PO SCH (09:21)
[2020-06-10] MEDS: SERTRALINE HCL 50 MG TABLET PO SCH (09:21)
--- NOTE | 2020-06-10 12:44 | Psychiatric Progress Note ---
Date of Service June 10, 2020 Impression / Recommendations Impression 19-year-old female [employer] Kahlil admitted voluntarily on 06/08/20 for inpatient psychiatric treatment upon recommendation of her therapist at [facility]. Pt had verbalized suicidal ideation with act of furtherance on 06/05 where she had contemplated numerous plans and did put a neck tie around her neck and searched for ways to hang herself. Pt admits to history of treatment for depression and anxiety. Will encourage participation in treatment recommendations and work to arrange outpatient psychiatric treatment. Pt is at acute risk of suicide if discharged prematurely. Reviewed 06/09/20. 06/10/20--continue current meds and treatment plan. Risk Factors Assessment Male: No : Yes Do You Have Access To A Gun?: No Health Problems: No Mental Health Diagnoses: Yes Substance Use Disorders: No Previous Attempt: No Family History of Suicide: No Previous Psychiatric Hospitalization: No Hopelessness: Yes Smoker: No Protective Factors Assessment Pentecostal Beliefs: No : No Responsible for Young Children: No Employed: No Stable Relationships: No Interval History Chief Complaint "I'm actually happy for a change". Review of Systems Sleep Information Total Hours of Sleep: 7.5 Meal Information Percent Meal Consumed - Breakfast: 90 Percent Meal Consumed - Lunch: 100 Percent Meal Consumed - Dinner: 100 Subjective Subjective Patient was seen & assessed and interval progress reviewed with nursing and social work. Discussed her family meeting with mother and plans to transition home. Feels mood is improved in the afternoon in particular as at home she "got in my head". Likes a set schedule to feel in control of her academics when other parts of life seem out of control (increased insight). Tolerating medications well. Physical Exam Psychiatric Orientation: alert and cooperative Apperance: appropriately dressed, appropriately groomed and appeared stated age Eye Contact: + fair eye contact Motor Behavior: steady gait and station and no abnormal motor movements Speech: normal rate/rhythm/volume of speech Affect: euthymic affect Mood: + anxious mood Thought Process: goal directed thought process Thought Content: reality based without delusions Suicidal Thoughts: denies suicidal thoughts and denies suicidal intent Homicidal Thoughts: denies homicidal thoughts Hallucinations: no auditory hallucinations and no visual hallucinations Cognition: attention grossly intact and language grossly intact Estimated Intelligence: consistent with education level Insight: + fair insight Judgement: + fair judgement Vital Signs (Past 24 Hours) Last Vital Signs Temp 36.8 C 06/10/20 06:00 Pulse 83 06/10/20 06:28 Resp 16 06/10/20 06:00 BP 98/70 L 06/10/20 06:28 Pulse Ox 99 06/07/20 21:26 Results & Data ([facility]) Current Inpatient Medications Current Inpatient Medications: Current Inpatient Medications Acetaminophen (Acetaminophen 325 Mg Tab) 650 mg PO Q4H PRN PRN Reason: Headache or Minor Fever Stop: 07/08/20 00:31 Al Hydrox/Mg Hydrox/Simethicone (Aluminum/Magnesium Susp 30 Ml Udc) 30 ml PO Q4H PRN PRN Reason: GI Upset Stop: 07/08/20 00:31 Bismuth Subsalicylate (Bismuth Subsalicylate Liqd 236 Ml) 15 ml PO PRN PRN PRN Reason: Loose Stool Stop: 07/08/20 00:31 Cephalexin HCl (Cephalexin 500 Mg Cap) 500 mg PO BID YANG Stop: 06/12/20 10:00 Last Admin: 06/10/20 09:20 Dose: 500 mg Documented by: Hydroxyzine HCl (Hydroxyzine Hcl 25 Mg Tab) 50 mg PO HSZ PRN PRN Reason: Insomnia Stop: 07/08/20 00:31 Last Admin: 06/09/20 00:48 Dose: 50 mg Documented by: Hydroxyzine HCl (Hydroxyzine Hcl 25 Mg Tab) 25 mg PO Q4H PRN PRN Reason: Anxiety Stop: 07/08/20 00:31 Last Admin: 06/08/20 12:21 Dose: 25 mg Documented by: Ibuprofen (Ibuprofen 600 Mg Tab) 600 mg PO Q6H PRN PRN Reason: Pain Stop: 07/08/20 10:51 Last Admin: 06/09/20 21:04 Dose: 600 mg Documented by: Magnesium Hydroxide (Magnesium Hydroxide Susp 30 Ml Udc) 30 ml PO DAILY PRN PRN Reason: Constipation Stop: 07/08/20 00:31 Bcp's~Non-Formulary (Patient's Own Med) 1 ea PO QAM YANG Stop: 07/08/20 08:59 Last Admin: 06/10/20 09:21 Dose: 1 ea Documented by: Monistat Cream~Non- Formulary Patient's Own Med 1 ea N/A BID PRN PRN Reason: affected areas Stop: 07/08/20 15:31 Last Admin: 06/08/20 22:32 Dose: 1 ea Documented by: Sertraline HCl (Sertraline Hcl 50 Mg Tablet) 125 mg PO QAM YANG Stop: 07/08/20 08:59 Last Admin: 06/10/20 09:21 Dose: 125 mg Documented by: Sodium Chloride (Sodium Chloride 0.65% Na Soln 45 Ml ([place])) 1 - 2 sprays NA PRN PRN PRN Reason: Nasal Dryness/Congestion Stop: 07/08/20 00:31 Mental Health & Subst Abuse Tx Therapist Name of Therapist: GINA/Jez Drapery Hand Name of Drapery Hand: None Post Discharge Appointments Primary Care Physician Name Of Family Doctor: Brock Arriola @ [facility], last saw 06/06/2020
[2020-06-11] MEDS: cephALEXin 500 MG CAP PO SCH (08:48)
[2020-06-11] MEDS: SERTRALINE HCL 50 MG TABLET PO SCH (08:49)
[2020-06-11] MEDS: BCP S PO SCH (08:52)
--- NOTE | 2020-06-11 09:38 | Discharge Summary ---
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 Pt is originally from [place], [place] and has a history of outpatient treatment for depression and anxiety. Pt was sent to the ED upon recommendation from providers at [facility] due to disclosing recent suicidal ideation with act of furtherance. Pt was ultimately willing for admission. Pt was cooperative with psychiatric evaluation. She states "I've just had a hard semester, it's hit even harder than last semester I feel." Pt states that she originally started her degree at a branch campus of [employer], and moved to [place] in the fall to continue her schooling. She states "this Spring semester has been tough, I feel like from day one I've just wanted to be at home." Pt initially stated that classes had been overwhelming, but then later reported "I've been more productive recently, like I actually want more work to do. I'm so bored." Pt describes the events leading to her presentation as "a build-up." She admits that in the last few weeks she had been rejected by several "guys I was talking to", and had to block her ex-boyfriend on all social medical platforms due to him consistently reaching out to "try to get be to go back with him." She states that there have been some conflicts between friends as well, which have been difficult to navigate. The patient states that she has often had "fleeting thoughts" of suicide, but has not often truly contemplated the idea. Pt admits that on 06/05/20 she was feeling overwhelmed and began looking for things she could use with the intent to end her life. Pt states she had considered drinking bleach, overdosing on pills, or hanging herself. Pt admits "but there's no place in my apartment to hang yourself, and I had thoroughly looked..." She does admit to taking a neck-tie and tying it around her neck and pulling with her own hand, but stopped shortly after. Despite verbalizing clear contemplation of suicide, she also admits "I think I got scared, because I knew that no one would be home to check on me in time, and I thought I might actually ..." Pt admits that generally she "fakes" happiness and sean with humor. She reported numerous times "I think now people will listen to my cries for help" and "I think I wanted people to notice how much I was hurting." She declines further titration of sertraline as she is already concerned her dose of 125mg may be "excessive". She is open to a family meeting with parents. Pt does admit to depressive symptoms of low mood and feeling "numb", decreased concentration, limited motivation, decreased appetite/motivation to cook, feelings of hopelessness, and intermittent SI. She does describe herself as an anxious person and admits to having had several panic attacks. Pt denies having adequate coping skills to deal with this and states "I usually just wait for it to pass." Pt states she notices she becomes more restless with anxiety, often bouncing her legs or being unable to concentration/sit still in classes. Pt does endorse some obsessive/compulsive traits of feeling the need to do things in 3's, feeling "compelled" to crack her back, needing to color coordinate notebooks, and other mild particular behaviors that are not overly distressing per her reports. Pt denies current SI, HI, SIB, A/V hallucinations, paranoia, other symptoms more suggestive of a bipolar presentation, PTSD, eating disorder, and other specific psychiatric symptoms. Physical Exam Mental Examination See admission H&P and DOD summary. Vital Signs (Past 24 Hours) Last Vital Signs Temp 36.6 C 06/11/20 06:00 Pulse 78 06/11/20 06:30 Resp 16 06/11/20 06:00 BP 104/65 06/11/20 06:30 Pulse Ox 99 06/07/20 21:26 Principal Diagnosis major depressive disorder Psychiatric Data See daily stay summary. In short, safety was maintained and the patient was cooperative with care. Medication changes included trial of the Zoloft 125 mg as previously discussed with outpatient provider and they tolerated this well. A family session was held and safety plan was completed prior to discharge. Day of Discharge Assessment Today the patient voices readiness for discharge. They note improvement in mood and deny thoughts to harm self or others. Thoughts remain organized and they are improved from admission. There is no evidence of psychosis. They agree to take mediations as prescribed and keep follow-up appointments. They are stable for discharge to outpatient level of care. Transition of Care Transition Of Care Record: was reviewed with the patient Advance Directives Advance Directives Information Provided: Yes Advance Directives: No Mental Health Advance Directive: No Advance Directives on File: No Living Will: No Power of Fence Installer: No Advance Directives Reason:: Declines as Mental Health Visit. Risk Factors Assessment Male: No : Yes Do You Have Access To A Gun?: No Health Problems: No Mental Health Diagnoses: Yes Substance Use Disorders: No Previous Attempt: No Family History of Suicide: No Previous Psychiatric Hospitalization: No Hopelessness: Yes Smoker: No Protective Factors Assessment Holiness Beliefs: No : No Responsible for Young Children: No Employed: No Stable Relationships: No Tobacco Cessation at Discharge Tobacco Cessation Medication Prescribed at Discharge: Not Applicable/Non-Smoker Total Time Total Time Spent: Greater Than 30 Minutes Total Time Includes: Examination of the patient, Discharge Planning and Medication Reconciliation Discharge Data Lab Results 06/07/20 06/07/20 06/07/20 20:09 20:09 20:09 WBC 9.26 RBC 4.75 Hgb 13.3 Hct 39.4 MCV 82.9 MCH 28.0 MCHC 33.8 RDW Std Deviation 39.8 RDW Coeff of Nani 13.2 Plt Count 271 MPV 9.5 Immature Gran % (Auto) 0.2 Neut % (Auto) 74.1 Lymph % (Auto) 15.4 Gage % (Auto) 9.8 Eos % (Auto) 0.4 Baso % (Auto) 0.1 Neut # (Auto) 6.85 H Lymph # (Auto) 1.43 Gage # (Auto) 0.91 H Eos # (Auto) 0.04 Baso # (Auto) 0.01 Immature Gran # (Auto) 0.02 Sodium 139 Potassium 3.7 Chloride 106 Carbon Dioxide 28 Anion Gap 5.0 BUN 11 Creatinine 0.77 Est Cr Clr Drug Dosing 108.4 Est GFR ( Amer) 128.8 Est GFR (Non-Af Amer) 111.1 BUN/Creatinine Ratio 14.2 Glucose 107 H Calcium 8.9 Total Bilirubin 0.4 AST 9 L ALT 15 Alkaline Phosphatase 68 Total Protein 8.0 Albumin 3.9 Globulin 4.1 H Albumin/Globulin Ratio 1.0 TSH 2.010 HCG, Qual Urine Color Urine Appearance Urine pH Ur Specific [place] Urine Protein Urine Glucose (UA) Urine Ketones Urine Blood Urine Nitrite Urine Bilirubin Urine Urobilinogen Ur Leukocyte Esterase Urine WBC (Auto) Urine RBC (Auto) U Hyaline Cast (Auto) U Epithel Cells (Auto) Urine Bacteria (Auto) Salicylates < 1.7 L Urine Opiates Screen Ur Methadone, Qual Acetaminophen < 2 L Urine Barbiturates Ur Phencyclidine (PCP) U Amphetamin/Meth Scrn MDMA (Ecstasy) Screen U Benzodiazepines Scrn Ur Cocaine Metabolite U Marijuana (THC) Screen Ethyl Alcohol mg/dL COVID-19 Eval Order SARS-CoV-2, RNA, NAAT 06/07/20 06/07/20 06/07/20 20:09 20:09 23:06 WBC RBC Hgb Hct MCV MCH MCHC RDW Std Deviation RDW Coeff of Nani Plt Count MPV Immature Gran % (Auto) Neut % (Auto) Lymph % (Auto) Gage % (Auto) Eos % (Auto) Baso % (Auto) Neut # (Auto) Lymph # (Auto) Gage # (Auto) Eos # (Auto) Baso # (Auto) Immature Gran # (Auto) Sodium Potassium Chloride Carbon Dioxide Anion Gap BUN Creatinine Est Cr Clr Drug Dosing Est GFR ( Amer) Est GFR (Non-Af Amer) BUN/Creatinine Ratio Glucose Calcium Total Bilirubin AST ALT Alkaline Phosphatase Total Protein Albumin Globulin Albumin/Globulin Ratio TSH HCG, Qual Negative Urine Color Urine Appearance Urine pH Ur Specific [place] Urine Protein Urine Glucose (UA) Urine Ketones Urine Blood Urine Nitrite Urine Bilirubin Urine Urobilinogen Ur Leukocyte Esterase Urine WBC (Auto) Urine RBC (Auto) U Hyaline Cast (Auto) U Epithel Cells (Auto) Urine Bacteria (Auto) Salicylates Urine Opiates Screen Ur Methadone, Qual Acetaminophen Urine Barbiturates Ur Phencyclidine (PCP) U Amphetamin/Meth Scrn MDMA (Ecstasy) Screen U Benzodiazepines Scrn Ur Cocaine Metabolite U Marijuana (THC) Screen Ethyl Alcohol mg/dL < 3.0 COVID-19 Eval [facility] SARS-CoV-2, RNA, NAAT 06/07/20 06/07/20 06/07/20 23:06 Unknown Unknown WBC RBC Hgb Hct MCV MCH MCHC RDW Std Deviation RDW Coeff of Nani Plt Count MPV Immature Gran % (Auto) Neut % (Auto) Lymph % (Auto) Gage % (Auto) Eos % (Auto) Baso % (Auto) Neut # (Auto) Lymph # (Auto) Gage # (Auto) Eos # (Auto) Baso # (Auto) Immature Gran # (Auto) Sodium Potassium Chloride Carbon Dioxide Anion Gap BUN Creatinine Est Cr Clr Drug Dosing Est GFR ( Amer) Est GFR (Non-Af Amer) BUN/Creatinine Ratio Glucose Calcium Total Bilirubin AST ALT Alkaline Phosphatase Total Protein Albumin Globulin Albumin/Globulin Ratio TSH HCG, Qual Urine Color Yellow Urine Appearance Turbid A Urine pH 6.5 Ur Specific [place] 1.021 Urine Protein Trace H Urine Glucose (UA) Negative Urine Ketones Trace H Urine Blood Trace H Urine Nitrite Negative Urine Bilirubin Negative Urine Urobilinogen Negative Ur Leukocyte Esterase 3+ H Urine WBC (Auto) >30 H Urine RBC (Auto) 0-4 U Hyaline Cast (Auto) Not Reportable U Epithel Cells (Auto) >30 H Urine Bacteria (Auto) 4+ H Salicylates Urine Opiates Screen Neg Ur Methadone, Qual Neg Acetaminophen Urine Barbiturates Neg Ur Phencyclidine (PCP) Neg U Amphetamin/Meth Scrn Neg MDMA (Ecstasy) Screen Neg U Benzodiazepines Scrn Neg Ur Cocaine Metabolite Neg U Marijuana (THC) Screen Neg Ethyl Alcohol mg/dL COVID-19 Eval Order SARS-CoV-2, RNA, NAAT NEGATIVE Hospital Course (1) Suicidal ideation: 06/08 - Admitted to a locked inpatient behavioral health unit, on q15 minute safety checks - Encourage medication initiation/adjustments as indicated - Encourage participation in group and recreational therapies - Gather collateral information from outpatient providers - Suggest family meeting to involve outpatient supports in safety planning - Arrange appropriate aftercare Reviewed 06/09/20. (2) Depression: 06/08 - Historical diagnosis of depression. Pt admits to general "numb" feeling, but does seem to report some strong emotional reactions to various situations. Differential includes: dysthymic disorder, personality disorder (specifically some borderline traits), and need to rule out bipolar II disorder given recent increase in productivity (though current reports are not at threshold for formal diagnosis. - Continue sertraline 125mg daily, reportedly had discussed titration to this does with her jailer chief recently but had not yet started the prescription. Pt declining further increase at this time, which is reasonable given recent outpatient adjustment. - Encourage participation with group and recreational programming - Assist with development of healthy and effective coping strategies - Family meeting with parents, coordination with Student Care and Advocacy - Encourage completion of a written safety plan Reviewed 06/09/20. Continue Zoloft. (3) Generalized anxiety disorder with panic attacks: 06/08 - Continue sertraline as above - R/O OCD, as patient admits to several traits (needing to do things in 3's, 'compulsions' to crack her back, "straightening little things out, but my room is a mess") - Utilization of hydroxyzine as needed for acute anxiety/insomnia - Assist with development of healthy and effective coping strategies Reviewed 06/09/20. (4) UTI (urinary tract infection): 06/08 - UA consistent with possible UTI, patient admits to irritation with urination. Started on Keflex in the ED, will continue 500mg BID dosing x5 days and await return of culture and sensitivities. Reviewed 06/09/20. Mental Health & Subst Abuse Tx Therapist Name of Therapist: [facility]Jez Yard Hostler Name of Yard Hostler: None Post Discharge Appointments Primary Care Physician Name Of Family Doctor: Brock Arriola @ [facility], last saw 06/06/2020 Smoking Cessation Counseling Tobacco Cessation Medication Prescribed at Discharge: Not Applicable/Non-Smoker Discharge Plan Discharge Items Patient Disposition: Home - Self-Care Reason For Visit: MDD, RECURRENT, SEVERE Discharge Diagnosis: major depressive disorder, recurrent, severe Condition on Discharge: Good Activity: Resume your previous activity Non-emergency contact: Primary Care Provider and Therapist Call non-emergency contact if: you have any medication questions and your symptoms worsen Follow-up/Referrals: Brock Corrales MD [Primary Care Provider] - Diet: Regular Addtl Attending Provider Instructions: SPECIAL CARE INSTRUCTIONS: 1. Follow through with your scheduled aftercare appointments. If unable to keep an appointment, please call to reschedule. 2. Take your medication only as prescribed. Medication should not be changed or stopped without the approval of your doctor. In the event of worsening symptoms or concerns about side effects, contact your doctor immediately. 3. Utilize new healthy coping skills, anger management skills, and stress management skills learned during your hospitalization. Journal feelings and process them with a support person. Identify stressors or situations that may result in relapse, deterioration or inappropriate behaviors and develop a plan to deal with those issues. 4. If your coping skills are ineffective and you are in crisis, contact your outpatient providers for direction. If unable to reach your providers, please call the [facility] CRISIS LINE AT , go to the [facility] walk-in center at [address], [address], [place], or go to the closest Emergency Room. 5. Avoid alcohol and un-prescribed drugs. 6. You have been provided with the Mental Health Advance Directives Pamphlet for your review. AFTERCARE APPOINTMENTS: * Please call your insurance company prior to your scheduled appointment to confirm your aftercare providers are covered. Take your insurance information to your appointments. WHO TO CALL AND WHEN: Medical Emergencies: For questions or emergencies related to your hospital stay, please contact the Inpatient Behavioral Health Unit at [phone]. A structural steel erector is on-call 01/09 for the Behavioral Health Unit for emergencies At any time you feel your situation is an emergency, you may also call 911 immediately. Pending Studies at Discharge: No Stand-Alone Forms: [facility], Smoking Cessation Medications and DC Order Prescriptions: New cephalexin 500 mg Capsule 500 mg PO BID 2 Days Qty: 3 RF: 0 sertraline 25 mg tablet 25 mg PO QAM 30 Days Qty: 30 RF: 0 Continued norgestimate-ethinyl estradiol [Gracie] 0.25-35 mg-mcg Tablet 1 tab PO DAILY RF: 0 sertraline [Zoloft] 100 mg Tablet 100 mg PO DAILY RF: 0 hydroxyzine pamoate 25 mg capsule 25 mg PO HS RF: 0 Discharge Orders: Discharge Order (Routine); Ordered 06/11/20 Ordered By: Nenita Rosario Admission Data Admit Date/Time: 06/08/20 00:32 Attending Provider: José Miguel Caputo Admit Provider: José Miguel Caputo Primary Care Provider: Brock Corrales Other Interventions: Discharge Summary Assessment (RN) Last Done: 06/11/20 09:47 PSY Interdisciplinary Discharge Planning Last Done: 06/11/20 13:36 Coding Level of Care Code 73593 D/C day mgmt > 30 min Diagnoses Suicidal ideation R45.851 Depression F32.9 Depression Type: unspecified Generalized anxiety disorder with panic attacks F41.1; F41.0 UTI (urinary tract infection) N30.00 Hematuria presence: without hematuria Urinary tract infection type: acute cystitis
== END 2020-06-11 15:13 | disposition home or self-care (01) | DRG 881 ==
LOC: ED 19:25 → 3S 06-08 00:32